=== PATIENT | female | born 1940 ===

== ENCOUNTER 2016-12-21 08:41 | Emergency (ER) | payer SELFPAY ==
[2016-12-21 08:41] VITALS: BP 132/59; PULSE 111; RESP 18; O2SAT 99
--- NOTE | 2016-12-21 08:58 | ED.REPORT ---
HPI-General Illness Date of Service Dec 21, 2016 ED Provider: Emir Fagan DO Pt is a 76 year old elderly Sammarinese speaking female with unknown medical history presenting to the ED via law enforcement due to reportedly being confused per police. The pt was caught shoplifting at [employer] 2 days in a row when she told the store workers that she was going to her car to get her bank card but did not return. Police arrived on scene and found the Sammarinese- speaking female, when police attempted to bring her home she was unable to explain the way home, so law enforcement brought her to the ED. She complains of a mild cough for several months which has interrupted her sleeping, but denies any other symptoms at this time. Nursing Notes Stated Complaint: MENTAL HEALTH EVAL Chief Complaint: Confused Nursing Notes Reviewed: Yes Allergies: Coded Allergies: No Known Allergies (Unverified , 12/21/16) General Time Seen by MD: 08:57 Chief Complaint Other (Confused) Hx Obtained From: Patient Arrived By: Police Sudden in Onset?: No Onset Occurred: Onset unknown Symptom Duration: Since onset Severity: Current: No pain currently Severity: Maximum: No pain Recent Healthcare: No recent doctor visit, No recent hospitalization Similar Sx Previous: No Past Medical History Past Medical History limited pmhx due to patient condition Past Surgical History unknown Ambulatory Status Independent Review of Systems Full Review of Systems Respiratory: Reports: Non-productive cough, Denies: Shortness of breath GI: Denies: Abdominal pain, Diarrhea, Nausea, Vomiting Neurologic: Denies: Focal weakness, Headache Complete sys rev & neg: except as marked. Physical Exam Vital Signs Vital Signs Date Time Temp Pulse Resp B/P Pulse Ox O2 Delivery O2 Flow Rate FiO2 12/21/16 11:18 36.3 86 16 133/63 95 Room Air 12/21/16 10:10 86 16 133/63 95 12/21/16 08:41 36.3 111 18 132/59 99 Room Air Initial VS: Reviewed Head / Eyes: Atraumatic, Normocephalic, PERRL ENT: Mucous membranes moist, Conjunctiva normal, No scleral icterus Respiratory: Breath sounds normal, Clear to auscultation, No respiratory distress Cardiovascular: Regular rate & rhythm, Heart sounds normal, Intact distal pulses Abdomen / GI: Soft, Non-tender, No guarding, No rebound, No distention Extremities: Vascular intact, Neuro intact, No swelling, No tenderness Skin: Warm, Dry, No cyanosis Neurologic: Alert, Oriented, Nonfocal Psychiatric: Mood/affect normal, Behavior normal, Normal thought content General/Constitutional: Awake, Alert Right facial droop, Sammarinese speaking Interpretation & Diagnostics Lab Results Interpretation Result Diagram: 12/21/16 1014 12/21/16 1014 Test 12/21/16 10:14 12/21/16 10:48 White Blood Count 9.8th/mm3 (3.8-10.1) Red Blood Count 4.52mil/mm3 (3.90-5.20) Hemoglobin 12.1g/dL (12.0-15.6) Hematocrit 37.0% (35.0-46.0) Mean Corpuscular Volume 81.9fL (81-100) Mean Corpuscular Hemoglobin 26.8pg (27.0-35.0) Mean Corpuscular Hemoglobin Concent 32.7% (32.0-37.0) Red Cell Distribution Width 14.2% (12.3-15.4) Platelet Count 216bil/L (150-400) Neutrophils (%) (Auto) 83.5% (40-74) Lymphocytes (%) (Auto) 10.4% (14-46) Monocytes (%) (Auto) 5.1% (4-12) Eosinophils (%) (Auto) 0.7% (0-5) Basophils (%) (Auto) 0.3% (0-3) Sodium Level 138mEq/L (134-144) Potassium Level 3.6mEq/L (3.5-5.2) Chloride Level 102mEq/L (97-108) Carbon Dioxide Level 22mmol/L (18-29) Blood Urea Nitrogen 11mg/dL (8-27) Creatinine 0.88mg/dL (0.57-1.00) Estimat Glomerular Filtration Rate 90mL/min (>59) Glucose Level 123mg/dL (60-99) Calcium Level 8.7mg/dL (8.5-10.1) Hold Mooney Top Tube Received (Received) Urine Color Straw (YELLOW) Urine Appearance Clear (CLEAR,HAZY) Urine pH 7.5 (5.0-8.0) Urine Specific Inland 1.005 (1.003-1.035) Urine Protein Negativemg/dL (NEG,TRACE) Urine Glucose (UA) Negativemg/dL (NEGATIVE) Urine Ketones Negativemg/dL (NEGATIVE) Urine Occult Blood Negative (NEGATIVE) Urine Nitrite Negative (NEGATIVE) Urine Bilirubin Negative (NEGATIVE) Urine Urobilinogen Normalmg/dL (NORMAL) Urine Leukocyte Esterase Negative (NEGATIVE) Urine RBC 0-2/hpf (0-2) Urine WBC 0-5/hpf (0-5) Urine Epithelial Cells Occasional/hpf (NONE-MOD) Urine Crystals None seen (NONE SEEN) Urine Bacteria None/hpf (NONE-FEW) Urine Hyaline Casts None/lpf (NONE) Urine Granular Casts None seen (NONE SEEN) Urine Waxy Casts None seen (NONE SEEN) Urine Red Blood Cell Casts None seen (NONE SEEN) Urine White Blood Cell Casts None seen (NONE SEEN) Urine Mucus None seen (None Seen) Urine Trichomonas None seen (NONE SEEN) Urine Yeast None (NONE SEEN) Urinalysis Comment Renal epi seen Urine Culture Reflexed Not indicated X-Ray Chest Interpretation Chest Xray Interpretation: IMPRESSION: No acute cardiopulmonary disease. Left basilar calcified granulomas. Dictated by: Zara Justice M.D. on 12/21/2016 at 10:43 View: AP & lat Interpretation / Wet Read by: Interpret - Radiologist CT Head Interpretation IMPRESSION: 1. No acute intracranial abnormalities. 2. Cerebral volume loss and chronic microvascular ischemic changes. Dictated by: Zara Justice M.D. on 12/21/2016 at 10:23 Study: Head CT no contrast Interpretation / Wet Read by: Interpret - Radiologist Re-Eval/Medical Decision Med Decision/Clinical Course Patient is seen and evaluated does not seem to have an emergent medical condition, she has never been evaluated in the ER before, with the help of a Sammarinese speaking comfort station attendant, the patient overall does not seem confused. She has a facial droop which she says has been present for 3 years. She is unable to relay the phone numbers of any friends or family members. She is illiterate and does not understand any [place]. This is a rather unfortunate situation however I have no indication that she has any emergent medical condition, nor overall any findings to suggest that she is gravely disabled in any way. She is seen by social work and ultimately is discharged. Discharge instructions and follow-up recommendations were given. Time of Eval: 09:33 Patient Status: Condition improved Re-Evaluation/Progress Note: The pt is able to find her home on foot, she just does not know the street names. Discussed plan for discharge. Pt understandsa and agrees. Counseled Regarding: Diagnosis, Lab results, Need for follow-up, When/why to return to ED Discharge & Departure Primary Impression: Cough Disposition: Home Discharge Condition All VS Reviewed: Yes Condition: Improved Additional Instructions: Follow-up with a PCP for further evaluation. Use the resources given to by social work. In the future, you should carry a notebook in your purse that contains your name, date of , home address, home phone number, and contact information for your friends or family. Return to the ER as needed. Seguimiento con un PCP para lizzy evaluacin posterior. Utilizar los recursos asignados por el trabajo social. En el futuro, debe llevar un cuaderno en arora bolso que contenga arora nombre, fecha de nacimiento, direccin de casa, nmero de telfono de casa e informacin de contacto para gabino amigos o familiares. Vuelva a la patti de emergencia segn sea necesario. Referrals: [facility] Res[facility] Scribe Attestation Portions of this note were transcribed by Duyen Lazcano. I, Dr. Fagan personally performed the history, physical exam and medical decision-making; I reviewed and confirmed the accuracy of the information in the transcribed note. Signed by: Nikita Johnson, 12/21/2016 at 1131. copies to: [facility]; [facility] Res[facility] Emir Fagan DO Dec 21, 2016 08:58 DUYEN LAZCANO Dec 21, 2016 09:08
[2016-12-21 10:10] VITALS: BP 133/63; PULSE 86; RESP 16; O2SAT 95
--- NOTE | 2016-12-21 10:26 | DRSVH ---
PROCEDURE: CT BRAIN WITHOUT CONTRAST ([id number]) INDICATIONS: confusion TECHNIQUE: Noncontrast 4.5 mm thick angled axial sections acquired from the foramen magnum to the vertex, with c oronal reformats. COMPARISON: None. FINDINGS: Image quality: Excellent. CSF spaces: Basal cisterns are patent. No extra-axial fluid collections. The ventricles are symmet clarisse in size and shape. Brain: No intracranial bleeds or masses. There is mild cerebral volume loss for age, with resultant ventricular and sulcal prominence. There are mild periventricular and deep white matter chronic sma ll vessel ischemic changes. There is intracranial internal carotid artery atherosclerosis. Skull and face: Calvarium and visualized facial bones appear intact, without suspicious lesions. Sinuses: Visualized sinuses and mastoids are clear. IMPRESSION: 1. No acute intracranial abnormalities. 2. Cerebral volume loss and chronic microvascular ischemic changes. Dictated by: Zara Justice M.D. on 12/21/2016 at 10:23 Approved by: Zara Justice M.D. on 12/21/2016 at 10:24
[2016-12-21 10:29] LABS: BASOPHILS % (AUTO) 0.3 % (0-3); EOSINOPHILS % (AUTO) 0.7 % (0-5); MONOCYTES % (AUTO) 5.1 % (4-12); Mean Corpuscular Hemoglobin 26.8 pg (27.0-35.0); Mean Corpuscular Volume 81.9 fL (81-100); NEUTROPHILS % (AUTO) 83.5 % (40-74); Platelet Count 216 bil/L (150-400)
--- NOTE | 2016-12-21 10:45 | DRSVH ---
PROCEDURE: X-RAY CHEST, TWO VIEWS ([id number]) INDICATIONS: cough TECHNIQUE: 2 views of the chest were acquired. COMPARISON: None. FINDINGS: Surgical changes and devices: None. Lungs and pleura: No pleural effusions or pneumothorax. Calcific nodules in the left lung base may be old granulomas. Mediastinum: Mediastinal contours are normal. Heart size is normal. Bones and chest wall: No suspicious bony abnormalities. Soft tissues appear unremarkable. IMPRESSION: No acute cardiopulmonary disease. Left basilar calcified granulomas. Dictated by: Zara Justice M.D. on 12/21/2016 at 10:43 Approved by: Zara Justice M.D. on 12/21/2016 at 10:44
[2016-12-21 11:06] LABS: APPEARANCE,URINE CLEAR (CLEAR,HAZY); COLOR,URINE STRAW (YELLOW); OCCULT BLOOD,URINE NEGATIVE (NEGATIVE); PH,URINE 7.5 (5.0-8.0); UROBILINOGEN,URINE NORMAL (NORMAL)
[2016-12-21 11:18] VITALS: BP 133/63; PULSE 86; RESP 16; O2SAT 95
--- NOTE | 2016-12-21 11:58 | NUR ---
ED BANKING OFFICER note: D/A: Pt is a 76 year old female with unknown medical history of presents to the ED with law enforcement after she was found to be shoplifting at [email or web address]. Law enforcement initially tried to bring pt home but she was confused and therefore pt was brought to the ED for evaluation. All evaluations have returned normal. Per RN, pt's daughter was deported within the last 1-2 years and pt has been living with a local resident, however tends to be forgetful and does not know how to navigate her way home in a car as she typically walks. Due to lack of natural supports and pt's confusion, which appears to be baseline for her, BANKING OFFICER asked for resources. Pt does not appear to have insurance and her immigration status is unclear, therefore pt was provided with [employer] resources, local immigration support resources through [facility] services as well as migrant medical program through [employer]. No addition concerns and pt does not appear to be gravely disabled or dangerously confused where she would be unsafe walking to her home at discharge. P: BANKING OFFICER staffed pt with ED MD, provided resources for continued support at discharge and pt will discharge home. OSIRIS Irby
== END 2016-12-21 11:33 | disposition home or self-care (01) ==
LOC: SED 08:41
DX: R05 Cough (principal)